=== PATIENT | male | born 1975 | race Caucasian/White ===

== ENCOUNTER 2023-01-15 09:09 | Emergency (ER) | payer BC ==
[2023-01-15] MEDS: Bacitracin Oint 1 GM U/D Packet TOP ONE (09:34)
== END 2023-01-15 09:38 | disposition home or self-care (01) ==
LOC: DL.ED 09:09
DX: S61.452A Open bite of left hand, initial encounter (principal); W54.0XXA Bitten by dog, initial encounter
CPT/HCPCS: 99282; 99283; A9270